=== PATIENT | male | born 1995 | race Caucasian/White ===

== ENCOUNTER 2020-07-27 11:18 | Emergency (ER) | payer SELFPAY ==
[2020-07-27] MEDS ORDERED: MORPHINE SULFATE 4 MG INJ IV ONE (11:32)
[2020-07-27] MEDS ORDERED: Zofran 4 MG/2 ML VIAL IV ONE (11:32)
[2020-07-27] MEDS ORDERED: Sodium Chloride 0.9% 1000 ML 1,000 ML IV STA (11:32)
[2020-07-27 11:59] LABS: Absolute Neutrophil Ct (ANC) 13.07 (1.4-6.9); BASOPHIL % 0.2 % (0.0-0.4); Basophil (Absolute #) 0.03 (0-0.4); Eosinophil % 0.2 % (0.00-5.0); Eosinophil (Absolute #) 0.04 (0-0.5); Hemoglobin 17.6 gm/dl (12.5-18.0); Lymphocytes % 15.7 % (24.0-44.0); Mean Cell Volume 90.4 fl (78-100); Mean Corpuscular Hemoglobin 31.2 pg (26-32); Mean Corpuscular Hgb Concent. 34.5 g/dl (32-36); Mean Platelet Volume 9.8 fl (7.5-11.0); Monocyte (Absolute #) 1.39 (0.0-1.3); Monocytes % 8.1 % (0.0-12.0); Neutrophil % 75.8 % (36.0-66.0); Platelet Count 328 K/mm3 (150-450); Red Blood Count 5.64 M/mm3 (4.1-5.6); Red Cell Distribution Width 12.9 % (11.5-14.0); White Blood Count 17.2 K/mm3 (4.0-10.5)
[2020-07-27] MEDS ORDERED: Zofran 4 MG/2 ML VIAL ONE (12:00)
[2020-07-27 12:01] LABS: Appearance CLEAR (CLEAR); Bilirubin NEGATIVE (NEGATIVE); Blood NEGATIVE Ery/ul (0-5); Glucose NEGATIVE (NEGATIVE); Ketones NEGATIVE (NEGATIVE); Leukocyte Esterase NEGATIVE (NEGATIVE); Mucus SLIGHT /HPF (NEGATIVE); Nitrite NEGATIVE (NEGATIVE); Protein,Urine Dip 30 (Negative); Specific Gravity 1.025 (1.005-1.025); Urobilinogen NEGATIVE mg/dL (0-1)
[2020-07-27] MEDS ORDERED: Sodium Chloride 0.9% 1000 ML 1,000 ML ONE (12:01)
[2020-07-27] MEDS ORDERED: MORPHINE SULFATE 4 MG INJ ONE (12:01)
[2020-07-27 12:02] LABS: ALBUMIN 5.4 g/dL (3.5-5.0); ALKALINE PHOSPHATASE 60 U/L (38-126); ANION GAP 19.9 MEQ/L (5-15); BLOOD UREA NITROGEN 9 mg/dL (9-20); CHLORIDE 102 mmol/L (98-107); Calcium 9.9 mg/dL (8.4-10.2); Carbon Dioxide 22 mmol/L (22-30); Creatinine 1 0.82 mg/dL (0.66-1.25); EST GLOMERULAR FILTRATION RATE > 60.0 ML/MIN; Glucose 105 mg/dL (74-106); LIPASE 29 U/L (23-300); Potassium 3.9 mmol/L (3.5-5.1); SGOT/AST 37 U/L (17-59); SGPT/ALT 28 U/L (0-50); SODIUM 140 mmol/L (137-145); Total Protein 9.1 g/dL (6.3-8.2)
[2020-07-27 12:04] LABS: Bacteria RARE /HPF (NEGATIVE); Epithelial Cells RARE /HPF (FEW)
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
[2020-07-27 13:44] VITALS: O2SAT 97
[2020-07-27 13:55] LABS: Amphetamine,Urine NEGATIVE (NEGATIVE); Barbiturate,Urine NEGATIVE (NEGATIVE); Benzodiazepine,Urine NEGATIVE (NEGATIVE); Cocaine,Urine NEGATIVE (NEGATIVE); Methadone,Urine NEGATIVE (NEGATIVE); Opiate,Urine NEGATIVE (NEGATIVE); PCP,Urine NEGATIVE (NEGATIVE); THC,Urine POSITIVE (NEGATIVE)
[2020-07-27 14:08] VITALS: BP 154/90; PULSE 76
== END 2020-07-27 14:17 | disposition short-term general hospital (02) ==
LOC: ED 11:18
DX: S12.401A Unspecified nondisplaced fracture of fifth cervical vertebra, initial encounter for closed fracture (principal); V50.5XXA Driver of pick-up truck or van injured in collision with pedestrian or animal in traffic accident, initial encounter; Y93.89 Activity, other specified; Y92.89 Other specified places as the place of occurrence of the external cause
CPT/HCPCS: 36000; 36415; 70450; 71260; 72125; 73030; 74177; 80053; 80307; 81001; 83690; 85025; 96360; 96374; 96375; 99285; 99291; J2270; J2405; G0480